=== PATIENT | female | born 1965 | race Caucasian/White ===

== ENCOUNTER 2016-09-16 19:26 | Observation (INO) | payer BC ==
[2016-09-16] MEDS ORDERED: SODIUM CHLORIDE 0.9% 500 ML IV STA (20:01)
[2016-09-16] MEDS ORDERED: ASPIRIN 81 MG CHEW PO STA (20:01)
--- NOTE | 2016-09-16 20:04 | ED ---
Abdominal Pain HPI - General Chief Complaint: Abdominal Pain Stated Complaint: nausea/upper abdominal pain/left arm tingling Time Seen by Provider: 09/16/16 19:56 Source: patient, RN notes reviewed Mode of arrival: ambulatory Limitations: no limitations - History of Present Illness Initial Comments: 50 yo female presents to the ER with cc of epigastric abdominal pain. Patient states she's had one episode yesterday that lasted about 40 minutes and went away on its own and another episode today. Patient states that this tender type pain that if she holds pressure on she seems to have improvement. Patient states it radiates up into her chest. Patient states now some left arm tingling as well she got diaphoretic and threw up and nauseous with this. Patient states the episode returned again today excessive amount hour and 30 minutes and now the pain is slowly going away. Patient denies any significant health history. Patient denies any history of pain like this in the past. Patient was concerned due to her symptoms so she thought that she should be evaluated.Patient denies any recent fever, chills, shortness of breath, back pain, numbness or tingling, dysuria or hematuria, constipation or diarrhea, headaches or visual changes, or any other current symptoms. - Related Data Home Medications Medication Instructions Recorded Confirmed No Known Home Medications [No 09/16/16 09/16/16 Known Home Medications] Allergies Allergy/AdvReac Type Severity Reaction Status Date / Time No Known Allergies Allergy Verified 09/16/16 20:11 Review of Systems ROS Statement: Those systems with pertinent positive or pertinent negative responses have been documented in the HPI. ROS Other: All systems not noted in ROS Statement are negative. Past Medical History Past Medical History: No Reported History History of Any Multi-Drug Resistant Organisms: None Reported Past Surgical History: No Surgical Hx Reported Past Psychological History: No Psychological Hx Reported Smoking Status: Never smoker Past Alcohol Use History: None Reported Past Drug Use History: None Reported General Exam - General Exam Comments Initial Comments: General: The patient is awake and alert, in no distress, and does not appear acutely ill. Eye: Pupils are equal, round and reactive to light, extra-ocular movements are intact; there is normal conjunctiva bilaterally. No signs of icterus. Ears, nose, mouth and throat: There are moist mucous membranes and no oral lesions. Neck: The neck is supple, there is no tenderness. Cardiovascular: There is a regular rate and rhythm. No murmur, rub or gallop is appreciated. Respiratory: Lungs are clear to auscultation, respirations are non-labored, breath sounds are equal. No wheezes, stridor, rales, or rhonchi. Gastrointestinal: Soft, non-distended, non-tender abdomen without masses or organomegaly noted. There is no rebound or guarding present. No CVA tenderness. Bowel sounds are unremarkable. Back: There is no tenderness to palpation in the midline. There is no obvious deformity. No rashes noted. Musculoskeletal: Normal ROM, no tenderness, There is no pedal edema. There is no calf tenderness or swelling. Sensation intact. Pulses equal bilaterally 2+. Neurological: CN II-XII intact, There are no obvious motor or sensory deficits. Coordination appears grossly intact. Speech is normal. Skin: Skin is warm and dry and no rashes or lesions are noted. Psychiatric: Cooperative, appropriate mood & affect, normal judgment. Limitations: no limitations Course Vital Signs 09/16/16 19:30 Temperature 97.5 F L Pulse Rate 69 Respiratory 16 Rate Blood Pressure 158/73 O2 Sat by Pulse 100 Oximetry Medical Decision Making - Medical Decision Making 50-year-old female presents emergency Department chief complaint epigastric pain. Patient's pain at this time has resolved however due to the nausea the diaphoresis and the pain radiating to the chest there is concern for cardiac component. Patient has a mildly elevated amylase which is low suspicion for the pain. At this time we'll admit her for cardiac rule out. This is discussed with patient and she agrees to the plan. - Lab Data Result diagrams: 09/16/16 20:20 09/16/16 20:20 Lab Results 09/16/16 09/16/16 09/16/16 Range/Units 20:20 20:20 20:20 WBC 8.8 (3.8-10.6) k/uL RBC 4.21 (3.80-5.40) m/uL Hgb 11.6 (11.4-16.0) gm/dL Hct 36.9 (34.0-46.0) % MCV 87.6 (80.0-100.0) fL MCH 27.6 (25.0-35.0) pg MCHC 31.4 (31.0-37.0) g/dL RDW 14.7 (11.5-15.5) % Plt Count 332 (150-450) k/uL Neutrophils % 68 % Lymphocytes % 24 % Monocytes % 5 % Eosinophils % 1 % Basophils % 0 % Neutrophils # 6.0 (1.3-7.7) k/uL Lymphocytes # 2.1 (1.0-4.8) k/uL Monocytes # 0.5 (0-1.0) k/uL Eosinophils # 0.1 (0-0.7) k/uL Basophils # 0.0 (0-0.2) k/uL PT (9.0-12.0) sec INR (<1.1) APTT (22.0-30.0) sec Sodium 142 (137-145) mmol/L Potassium 3.7 (3.5-5.1) mmol/L Chloride 101 (98-107) mmol/L Carbon Dioxide 28 (22-30) mmol/L Anion Gap 13 mmol/L BUN 15 (7-17) mg/dL Creatinine 0.90 (0.52-1.04) mg/dL Est GFR (MDRD) Af Amer >60 (>60 ml/min/1.73 sqM) Est GFR (MDRD) Non-Af >60 (>60 ml/min/1.73 sqM) Glucose 107 H (74-99) mg/dL Calcium 9.7 (8.4-10.2) mg/dL Magnesium 2.1 (1.6-2.3) mg/dL Total Bilirubin 0.3 (0.2-1.3) mg/dL AST 91 H (14-36) U/L ALT 48 (9-52) U/L Alkaline Phosphatase 84 (38-126) U/L Total Creatine Kinase 71 (30-135) U/L CK-MB (CK-2) 0.5 (0.0-2.4) ng/mL CK-MB (CK-2) Rel Index 0.7 Troponin I <0.012 (0.000-0.034) ng/mL Total Protein 7.4 (6.3-8.2) g/dL Albumin 4.4 (3.5-5.0) g/dL Amylase 118 H (30-110) U/L Lipase 269 (23-300) U/L 05/18/17 Range/Units 20:20 WBC (3.8-10.6) k/uL RBC (3.80-5.40) m/uL Hgb (11.4-16.0) gm/dL Hct (34.0-46.0) % MCV (80.0-100.0) fL MCH (25.0-35.0) pg MCHC (31.0-37.0) g/dL RDW (11.5-15.5) % Plt Count (150-450) k/uL Neutrophils % % Lymphocytes % % Monocytes % % Eosinophils % % Basophils % % Neutrophils # (1.3-7.7) k/uL Lymphocytes # (1.0-4.8) k/uL Monocytes # (0-1.0) k/uL Eosinophils # (0-0.7) k/uL Basophils # (0-0.2) k/uL PT 10.1 (9.0-12.0) sec INR 1.0 (<1.1) APTT 21.9 L (22.0-30.0) sec Sodium (137-145) mmol/L Potassium (3.5-5.1) mmol/L Chloride (98-107) mmol/L Carbon Dioxide (22-30) mmol/L Anion Gap mmol/L BUN (7-17) mg/dL Creatinine (0.52-1.04) mg/dL Est GFR (MDRD) Af Amer (>60 ml/min/1.73 sqM) Est GFR (MDRD) Non-Af (>60 ml/min/1.73 sqM) Glucose (74-99) mg/dL Calcium (8.4-10.2) mg/dL Magnesium (1.6-2.3) mg/dL Total Bilirubin (0.2-1.3) mg/dL AST (14-36) U/L ALT (9-52) U/L Alkaline Phosphatase (38-126) U/L Total Creatine Kinase (30-135) U/L CK-MB (CK-2) (0.0-2.4) ng/mL CK-MB (CK-2) Rel Index Troponin I (0.000-0.034) ng/mL Total Protein (6.3-8.2) g/dL Albumin (3.5-5.0) g/dL Amylase (30-110) U/L Lipase (23-300) U/L - EKG Data -: EKG Interpreted by Me 09/16/16 21:22 normal sinus rhythm 61 bpm, left axis deviation, no atopy, no S-T depressions or elevations, - Radiology Data Radiology results: report reviewed, image reviewed Disposition Clinical Impression: Unstable angina Disposition: ADMITTED IP TO THIS [facility] Condition: Stable Referrals: None,Stated [Primary Care Provider] - 1-2 days Time of Disposition: 21:22 Decision Date: 09/16/16 Decision Time: 21:22
[2016-09-16 20:28] LABS: Basophils % (A) 0 %; CH 27.4; CHCM 31.4; Eosinophils # (A) 0.1 k/uL (0-0.7); Eosinophils % (A) 1 %; HCT 36.9 % (34.0-46.0); HDW 2.23; HGB 11.6 gm/dL (11.4-16.0); Luc # (Auto) 0.13; Luc % (Auto) 2; Lymphocytes # (A) 2.1 k/uL (1.0-4.8); Lymphocytes % (A) 24 %; MCH 27.6 pg (25.0-35.0); MCHC 31.4 g/dL (31.0-37.0); MCV 87.6 fL (80.0-100.0); Mean Platelet Volume 6.9; Monocytes # (A) 0.5 k/uL (0-1.0); Monocytes % (A) 5 %; Neutrophils % (A) 68 %; RBC 4.21 m/uL (3.80-5.40); RDW 14.7 % (11.5-15.5); WBC 8.8 k/uL (3.8-10.6); WBC (Perox) 9.05
[2016-09-16 20:40] LABS: Partial Thromboplastin Time 21.9 sec (22.0-30.0)
[2016-09-16 20:42] LABS: ALT 48 U/L (9-52); AST 91 U/L (14-36); Alkaline Phosphatase 84 U/L (38-126); Amylase 118 U/L (30-110); Anion Gap 13 mmol/L; Blood Urea Nitrogen 15 mg/dL (7-17); Calcium 9.7 mg/dL (8.4-10.2); Carbon Dioxide 28 mmol/L (22-30); Chloride 101 mmol/L (98-107); Glucose 107 mg/dL (74-99); Magnesium 2.1 mg/dL (1.6-2.3); Non-African American GFR(MDRD) >60 (>60 ml/min/1.73 sqM); Potassium 3.7 mmol/L (3.5-5.1); Sodium 142 mmol/L (137-145); Total Bilirubin 0.3 mg/dL (0.2-1.3); Total Protein 7.4 g/dL (6.3-8.2)
[2016-09-16 20:45] LABS: Prothrombin Time 10.1 sec (9.0-12.0)
[2016-09-16 20:54] LABS: Creatine Kinase 71 U/L (30-135)
[2016-09-16 21:07] LABS: Creatine Kinase MB 0.5 ng/mL (0.0-2.4); Troponin I <0.012 ng/mL (0.000-0.034)
--- NOTE | 2016-09-16 21:08 | XR ---
EXAMINATION TYPE: XR chest 2V DATE OF EXAM: 09/16/2016 8:31 PM COMPARISON: NONE HISTORY: Pain TECHNIQUE: Frontal and lateral views of the chest are obtained. FINDINGS: There is no focal air space opacity, pleural effusion, or pneumothorax seen. The cardiac silhouette size is within normal limits. The osseous structures are intact. IMPRESSION: No acute cardiopulmonary process.
[2016-09-16] MEDS ORDERED: NITROGLYCERIN SL TABS 0.4 MG TAB SUBLINGUAL PRN (21:23)
[2016-09-16] MEDS ORDERED: HEPARIN SODIUM,PORCINE 5,000 UNIT/ML 1 ML VIAL IV ONE (21:23)
[2016-09-16] MEDS ORDERED: HEPARIN SODIUM,PORCINE/D5W PMX 25,000 UNIT in DEXTROSE/WATER 1 500ML.BAG IV SCH (21:30)
[2016-09-16 22:51] VITALS: RESP 16
[2016-09-16 23:02] VITALS: BMI 23.5
[2016-09-17] MEDS: NITROGLYCERIN OINT 1 INCH/GM PACKET TOPICAL SCH ×3 (01:03→12:31)
[2016-09-17 04:04] LABS: Amylase 101 U/L (30-110); Cholesterol 194 mg/dL (<200); HDL Cholesterol 53 mg/dL (40-60); Triglycerides 100 mg/dL (<150)
[2016-09-17 04:19] LABS: Creatine Kinase 66 U/L (30-135)
[2016-09-17 04:32] LABS: Creatine Kinase MB 0.5 ng/mL (0.0-2.4); Troponin I <0.012 ng/mL (0.000-0.034)
[2016-09-17 08:05] LABS: Creatine Kinase 62 U/L (30-135)
[2016-09-17 08:18] LABS: Creatine Kinase MB 0.4 ng/mL (0.0-2.4); Troponin I <0.012 ng/mL (0.000-0.034)
[2016-09-17] MEDS ORDERED: ASPIRIN 325 MG TAB PO SCH (09:00)
--- NOTE | 2016-09-17 09:37 | CONS ---
DATE OF CONSULTATION: He is a 50-year-old female who has been experiencing recurrent epigastric discomfort for the last 2 days. The first episode lasted for about 10 minutes, while she was driving. The second episode lasted for about 19 minutes and was triggered after she ate a meal. The pain is epigastric and is nonradiating and is somewhat tender there. It does not radiate through to the back. It does not radiate up in the chest, but she was nauseous, sweaty, dizzy and during the episode was quite uncomfortable and hence, she came to the hospital. MEDICATIONS: None. PAST MEDICAL HISTORY: No history of hypertension, diabetes. LDL is 121 mg/dL. Family history of premature coronary artery disease. Her father had coronary artery disease documented at age of 50 and he had bypass surgery at that time. SOCIAL HISTORY: She is a never smoker. Past alcohol use, minimal. REVIEW OF SYSTEMS: No fever, chills, rigors. No cough or expectoration. She did have nausea. No vomiting. No diarrhea. Epigastric discomfort. No hematuria or dysuria. No strokes or seizure. No skin lesions or musculoskeletal complaints. No chest discomfort. On examination, her blood pressure is 124/80 mmHg, heart rate is in the 50s and 60s. Head and neck examination is normal. Heart sounds are normal. Lungs are clear on auscultation. Extremities are warm, no edema. She is mildly tender in the epigastrium. Abdomen is soft, nontender. No rebound, no guarding , no rigidity. Labs are reviewed. Hemoglobin is 11.6. Electrolytes are normal. Cardiac enzymes x3 are normal. LDL is 121. Amylase was 118, now it is 101. Lipase was 269 and now is 278. Kidney function normal. Liver functions are normal. IMPRESSION: 1. Epigastric discomfort associated with nausea, sweating, shortness of breath that made her very uncomfortable with normal cardiac enzymes, two serial EKGs that are normal. I repeated her ECG again this morning and there is no change from her prior ECG. The 12-lead ECG shows sinus rhythm, left axis deviation, normal [place], narrow QRS, normal ST segments and no serial changes. 2. Borderline rise in amylase yesterday, which is now normal. 3. Premature coronary disease in the family. 4. LDL of 121 mg/dL. 5. Patient is nondiabetic, nonsmoker, never smoker, no hypertension. SUGGEST: Exercise stress echo and if this is normal an abdominal workup should be considered in view of her symptoms and the transient laboratory abnormality in the amylase.
--- NOTE | 2016-09-17 11:52 | ECHOS ---
DATE OF SERVICE: 09/17/2016 AGE: 50Y SEX: F HT: 67 WT: 150 lbs. Protocol Fredrick: X Others: Stress Echo Stage: III Dur. of Exercise: 9 minutes *Heart Rate Blood Pressure *Rest: 69 Rest: 144/80 * *Max. Achieved: 145 Maximum BP: 170/69 85% PMHR: 145 100% PMHR: 170 *METS: 10.1 INDICATIONS: Chest pain. MEDICATIONS: Mrs. Alvarado is a 50-year-old female being evaluated for symptoms of chest pain. Baseline EKG showed sinus rhythm with normal MO interval and QRS duration. Occasional PVCs were noted at rest. Patient walked on the Fredrick protocol for about 9 minutes, achieving a maximum heart rate of 145 with blood pressure of 170/69. EKGs taken during and after the exercise did not reveal any significant changes to suggest ischemia. Patient did have occasional to frequent PVCs with rare bigeminal pattern. ECHO DATA: Baseline echo images show normal wall motion and thickening. Exercise echo images showed augmentation of the wall motion and thickening in all the segments. FINAL IMPRESSION: 1. Negative stress test. 2. Negative stress echo. 3. Patient had exercise-induced ectopy in the form of premature ventricular contractions and bigeminal pattern.
[2016-09-17 12:35] VITALS: BP 128/73; PULSE 85; TEMP 97.6
--- NOTE | 2016-09-18 08:42 | HP ---
DATE OF ADMISSION: 09/16/2016 H&P AND DISCHARGE SUMMARY: The patient is a 50-year-old female who came in with epigastric abdominal pain sharp in nature non-radiating started after eating food and patient has nausea associated with that. Patient chest pain nonpleuritic in nature, not associated with diaphoresis. Not associated with fever, chills. The patient denied any cough. Patient does drink coffee multiple times in a day. Patient was ruled out for acute coronary syndrome. Patient had a stress test which was negative. REVIEW OF SYSTEMS: CONSTITUTIONAL: No fever, no malaise, no fatigue. HEENT: No recent visual problems or hearing problems. Denied any sore throat. CARDIOVASCULAR: No chest pain, orthopnea, PND, no palpitations, no syncope. PULMONARY: No shortness of breath, no cough, no hemoptysis. GASTROINTESTINAL: As described in HPI. NEUROLOGICAL: No headaches, no weakness, no numbness. HEMATOLOGICAL: Denies any bleeding or petechiae. GENITOURINARY: Denies any burning micturition, frequency, or urgency. MUSCULOSKELETAL/RHEUMATOLOGICAL: Denies any joint pain, swelling, or any muscle pain. ENDOCRINE: Denies any polyuria or polydipsia. The rest of the 14 point review of systems is negative. ALLERGIES: No known drug allergies. Home medications: None. PAST MEDICAL HISTORY: No significant past medical history or surgical history. SOCIAL HISTORY: Denied any smoking, alcohol abuse or drug abuse. FAMILY HISTORY: Denied any family history of coronary artery disease. PHYSICAL EXAMINATION: VITAL SIGNS: Temperature 97.2, pulse 69, respiratory rate 16, blood pressure 150/93, saturating at 100% on room air. GENERAL: The patient is alert and oriented x3, not in any acute distress. Well developed, well nourished. HEENT: Pupils are round and equally reacting to light. EOMI. No scleral icterus. No conjunctival pallor. Normocephalic, atraumatic. No pharyngeal erythema. No thyromegaly. CARDIOVASCULAR: S1 and S2 present. No murmurs, rubs, or gallops. PULMONARY: Chest is clear to auscultation, no wheezing or crackles. ABDOMEN: Soft, nontender, nondistended, normoactive bowel sounds. No palpable organomegaly. MUSCULOSKELETAL: No joint swelling or deformity. EXTREMITIES: No cyanosis, clubbing, or pedal edema. NEUROLOGICAL: Gross neurological examination did not reveal any focal deficits. SKIN: No rashes. LABORATORY DATA: CBC, BMP, Troponins and EKG, stress tests were all negative. ASSESSMENT AND PLAN: 1. Chest pain. Rule out acute coronary syndrome. 2. Gastritis with chest pain which is mostly in the epigastric area, is probably related to peptic ulcer disease . I will give her 14 days of Prilosec and patient, empiric Prilosec. The patient will be discharged to follow-up with primary care physician in about a week. Activity as tolerated. Patient will referred to Dr. Abraham Rogers. To follow-up with Dr. Abraham Rogers in about a week.
== END 2016-09-17 13:31 | disposition home or self-care (01) ==
LOC: EC 19:26 → 3OBS 22:14
PROVIDERS: ADMIT Internal Medicine; ATTEND Internal Medicine
DX: R07.9 Chest pain, unspecified (principal); K29.70 Gastritis, unspecified, without bleeding; R20.2 Paresthesia of skin; R10.13 Epigastric pain; R61 Generalized hyperhidrosis; R11.2 Nausea with vomiting, unspecified; R06.02 Shortness of breath; R74.8 Abnormal levels of other serum enzymes; R42 Dizziness and giddiness; Z82.49 Family history of ischemic heart disease and other diseases of the circulatory system
CPT/HCPCS: 96361 ×2; 96366 ×2; 96376; 96365; 99285; 36415; 93005; 93017; 93350; 80061; 80053; 82150 ×2; 82550 ×2; 82553 ×2; 83690 ×2; 83735; 84484 ×2; 85025; 85610; 85730 ×2; 71020; G0378 ×2; J1644 ×2

== ENCOUNTER → 2024-10-12 | Outpatient (CLI) | payer BC ==
--- NOTE | 2024-10-12 10:14 | MM ---
Reason for Exam: Screening (asymptomatic). Patient History: Menarche at age 15. First Full-Term at age 29. Postmenopausal. Risk Values: Yenny 5 year model risk: 1.4%. NCI Lifetime model risk: 7.8%. Tissue Density: The breasts are extremely dense, which lowers the sensitivity of mammography. Findings: Analyzed By CAD. No suspicious calcifications. There is a 5 mm nodule outer margin right breast. Spot compression view recommended Benign calcification. Overall Assessment: Incomplete: need additional imaging evaluation, BI-RAD 0 Management: Special View Mammogram of the right breast. . Patient should continue monthly self-breast exams. A clinical breast exam by your physician is recommended on an annual basis. This exam should not preclude additional follow-up of suspicious palpable abnormalities. Note on Yenny scores and lifetime risk: 1. A Yenny score greater than 3% is considered moderate risk. If this is the case, consider specialist referral to assess eligibility for a risk reducing agent. 2. If overall lifetime risk for the development of breast cancer is 20% or higher, the patient may qualify for future screening with alternating mammogram and breast MRI. [facility], , 10/12/2024 10:11 AM. Electronically signed and approved by: Naresh Hanna M.D. Radiologis
== END | disposition home or self-care (01) ==
LOC: RADMAMWWP 09:16
PROVIDERS: ATTEND Family Medicine
DX: Z12.31 Encounter for screening mammogram for malignant neoplasm of breast (principal); R92.343 Mammographic extreme density, bilateral breasts; Z78.0 Asymptomatic menopausal state
CPT/HCPCS: 77063; 77067

== ENCOUNTER → 2024-10-23 | Outpatient (CLI) | payer BC ==
--- NOTE | 2024-10-23 10:35 | MM ---
Reason for Exam: Additional evaluation requested from abnormal screening. Last screening mammogram was performed less than 1 month ago. Patient History: Menarche at age 15. First Full-Term at age 29. Postmenopausal. Risk Values: Yenny 5 year model risk: 1.4%. NCI Lifetime model risk: 7.8%. Tissue Density: Right: The breasts are heterogeneously dense, which may obscure small masses. Findings: Analyzed By CAD. Stable nodular density lateral aspect CC view 7.6 cm the nipple measuring 4 mm. Not currently seen on right MLO view. Overall Assessment: Incomplete: need additional imaging evaluation, BI-RAD 0 Management: Diagnostic Breast Ultrasound of the right breast. Ultrasound recommended lateral right breast 7.6 cm from nipple for 4 mm lesion. Results were given to the patient verbally at the time of exam. Patient should continue monthly self-breast exams. A clinical breast exam by your physician is recommended on an annual basis. This exam should not preclude additional follow-up of suspicious palpable abnormalities. Note on Yenny scores and lifetime risk: 1. A Yenny score greater than 3% is considered moderate risk. If this is the case, consider specialist referral to assess eligibility for a risk reducing agent. 2. If overall lifetime risk for the development of breast cancer is 20% or higher, the patient may qualify for future screening with alternating mammogram and breast MRI. [facility], , 10/23/2024 10:30 AM. Electronically signed and approved by: Tony Ely DO
--- NOTE | 2024-10-23 11:02 | USB ---
Reason for Exam: Additional evaluation requested from abnormal screening. Patient History: Menarche at age 15. First Full-Term at age 29. Postmenopausal. Risk Values: Yenny 5 year model risk: 1.4%. NCI Lifetime model risk: 7.8%. Technique: Method: Targeted. Prior Study Comparison: 10/12/2024 Bilateral MG 3D screening mammo w/cad, [facility]. Findings: The lateral section of the breast of the right breast, the axilla of the right breast and the retroareolar of the right breast were scanned. Technique utilized:US breast workup limited RT Image; Ultrasound imaging of: All 4 quadrants, the retroareolar region and axilla. There is a hypoechoic lesion at 10:00 7 cm from the nipple which is hypoechoic round with somewhat ill-defined margins. This is surrounded by fibroglandular tissue measuring up to 4 mm. Overall Assessment: Suspicious, BI-RAD 4 Management: Ultrasound Core Biopsy of the right breast. A clinical breast exam by your physician is recommended on an annual basis and results should be correlated with mammographic findings. This exam should not preclude additional follow-up of suspicious palpable abnormalities. Results were given to the patient verbally at the time of exam. [facility], , 10/23/2024 10:59 AM. Electronically signed and approved by: Tony Ely DO
== END | disposition home or self-care (01) ==
LOC: RADMAMWWP 10:08
PROVIDERS: ATTEND Family Medicine
DX: R92.8 Other abnormal and inconclusive findings on diagnostic imaging of breast (principal); R92.331 Mammographic heterogeneous density, right breast; Z78.0 Asymptomatic menopausal state
CPT/HCPCS: 77061; 77065

== ENCOUNTER → 2024-10-29 | Day surgery (SDC) | payer BC ==
--- NOTE | 2024-11-06 08:33 | MM ---
Reason for Exam: Post Procedure Mammogram. Last screening mammogram was performed less than 1 month ago. Patient History: Menarche at age 15. First Full-Term at age 29. Postmenopausal. Risk Values: Yenny 5 year model risk: 1.4%. NCI Lifetime model risk: 7.8%. Prior Study Comparison: 10/12/2024 Bilateral MG 3D screening mammo w/cad, [facility]. 10/23/2024 Right US breast workup limited RT, [facility]. 10/23/2024 Right MG 3D work up w/cad RT, [facility]. Tissue Density: Right: The breasts are extremely dense, which lowers the sensitivity of mammography. Pathology Description: Location: 10 o'clock. Marker Left Behind. Needle Type: Mammotome Cores: 4 The tiny 3 mm hypoechoic area at the 10:00 position is identified and targeted for biopsy. We note that this is embedded within dense tissue and are unclear if this is a true lesion. The procedure of ultrasound guided core biopsy was explained to the patient. Benefits, alternatives, and risks were discussed. An informed consent was then obtained. The patient was placed in supine positioning for imaging and for the procedure. The overlying skin was prepped and draped in usual sterile fashion. Lidocaine buffered with bicarbonate was used as anesthetic into the skin and subcutaneous tissue up to area of concern in the right breast. Under ultrasound guidance, a 13-gauge vacuum-assisted mammotome Elite biopsy gun was used to obtain 4 core samples. Following this, a HydroMark coil clip was left at the site of biopsy. The patient tolerated the procedure well without any immediate complication. The patient was kept in the radiology department for short stay after the procedure and then discharged home in stable condition. Postprocedure mammogram: The patient was transferred to mammography for physician ordered post procedure mammogram for clip placement verification. Post procedure mammogram demonstrates clip at or near the site of mammographic detected nodularity. Possible mammographic correlate versus incidental finding. IMPRESSION: Successful, uncomplicated ultrasound guided core biopsy of tiny 3 mm hypoechoic area 10:00 right breast, either mammographic correlate versus incidental finding. Full pathology results to follow. [facility], , 10/29/2024 2:47 PM. Pathology Results: Result: Benign. 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 Current specimen negative for diagnostic in situ or invasive carcinoma (see note). Notes Clinical correlation with imaging studies is suggested as indicated. Overall Assessment: Benign Assessment: MG diagnostic mammo RT wo CAD - Right: Benign, BI-RAD 2. Management: Diagnostic Mammogram of the right breast in 6 months. Diagnostic Breast Ultrasound of the right breast in 6 months. Electronically signed and approved by: Parul Khan M.D. Radiologist
== END ==
LOC: RADUSWWP 11:55
PROVIDERS: ATTEND Family Medicine
DX: N61.0 Mastitis without abscess (principal); R92.8 Other abnormal and inconclusive findings on diagnostic imaging of breast; N60.01 Solitary cyst of right breast; Z78.0 Asymptomatic menopausal state
CPT/HCPCS: 88305; 77065; 19083; A4648